=== PATIENT | female | born 1985 | race African-American/Black ===

== ENCOUNTER 2019-01-10 11:40 | Outpatient (CLI) | payer MEDICAID ==
[2019-01-10 13:11] LABS: ADD UMIC YES; UR AMORPHOUS CRYSTAL FEW /HPF (NONE SEEN); UR ASCORBIC ACID NEGATIVE (NEGATIVE); UR BACTERIA FEW /HPF (NONE SEEN); UR BILIRUBIN (Dip) NEGATIVE (NEGATIVE); UR BLOOD (Dip) NEGATIVE (NEGATIVE); UR CLARITY CLOUDY (CLEAR); UR COLOR RED (YELLOW); UR GLUCOSE (Dip) NEGATIVE (NEGATIVE); UR KETONES (Dip) NEGATIVE (NEGATIVE); UR LEUKOCYTE ESTERASE (Dip) NEGATIVE Leu/ul (NEGATIVE); UR NITRITE (Dip) NEGATIVE (NEGATIVE); UR RBC 0 /HPF (0-5); UR SPECIFIC GRAVITY (Dip) 1.013 (1.003-1.030); UR SQUAMOUS EPITHELIAL CELL FEW /HPF (FEW); UR TOTAL PROTEIN (Dip) NEGATIVE (NEGATIVE); UR UROBILINOGEN (Dip) NEGATIVE (NEGATIVE); UR WBC 2 /HPF (0-5)
== END 2019-01-10 14:20 | disposition home or self-care (01) ==
LOC: OBT 11:40 → L-D 11:42 → OBT 14:20
DX: O26.892 Other specified pregnancy related conditions, second trimester (principal); R10.2 Pelvic and perineal pain; M54.9 Dorsalgia, unspecified; Z3A.27 27 weeks gestation of pregnancy
CPT/HCPCS: 76818; 81001; 87086

== ENCOUNTER 2019-02-24 11:42 | Inpatient (IN) | payer MEDICAID ==
[2019-02-24 15:22] LABS: ADD MAN DIFF? NO
[2019-02-24 15:34] LABS: BASOPHILS % 0.2 % (0.0-2.0); EOSINOPHILS # 0.1 10^3/ul (0.0-0.5); EOSINOPHILS % 2.2 % (0.0-7.0); HEMATOCRIT 31.3 % (37.0-47.0); HEMOGLOBIN 10.9 g/dl (12.0-16.0); LYMPHOCYTES # 1.5 10^3/ul (0.8-2.9); LYMPHOCYTES % 24.7 % (15.0-51.0); MEAN CORPUSCULAR HEMOGLOBIN 30.8 pg (29.0-33.0); MEAN CORPUSCULAR HGB CONC 34.8 g/dl (32.0-37.0); MEAN CORPUSCULAR VOLUME 88.4 fl (82.0-101.0); MEAN PLATELET VOLUME 11.6 fl (7.4-10.4); MONOCYTE # 0.4 10^3/ul (0.3-0.9); MONOCYTES % 7.5 % (0.0-11.0); NEUTROPHIL # 3.8 10^3/ul (1.6-7.5); NEUTROPHILS % 64.9 % (39.0-77.0); PLATELET COUNT 159 10^3/UL (140-415); RED BLOOD COUNT 3.54 10^6/ul (4.20-5.40); RED CELL DISTRIBUTION WIDTH 14.1 % (11.5-14.5)
[2019-02-24 15:34] LABS: WHITE BLOOD COUNT 5.9 10^3/ul (4.8-10.8)
[2019-02-24] MEDS: ACETAMINOPHEN 325 MG TAB PO (16:32)
[2019-02-24] MEDS: LACTATED RINGER'S 1,000 ML IV ×2 (18:06→23:07)
[2019-02-25] MEDS: LACTATED RINGER'S 1,000 ML IV ×2 (06:30→16:39)
[2019-02-25] MEDS: PRENATAL VITAMIN PO (09:50)
[2019-02-25] MEDS: FERROUS SULFATE (EC) 325 MG TAB PO (09:50)
== END 2019-02-25 19:00 | disposition home or self-care (01) | DRG 833 ==
LOC: OBT 11:42 → PP1 02-25 07:00 → L-D 11:42 → OBT 17:15 → L-D 17:15
PROVIDERS: Obstetrics & Gynecology
PROC: 4A1HXCZ Monitoring of Products of Conception, Cardiac Rate, External Approach (ICD-10-PCS; principal; 2019-02-24)
DX: O26.893 Other specified pregnancy related conditions, third trimester (principal); Z3A.34 34 weeks gestation of pregnancy; S39.91XA Unspecified injury of abdomen, initial encounter; W19.XXXA Unspecified fall, initial encounter
CPT/HCPCS: 76815; 76816; 76818; 85025; 85460; 86850; 86900; 86901

== ENCOUNTER 2019-03-16 16:11 | Outpatient (CLI) | payer MEDICAID ==
[2019-03-16] MEDS ORDERED: CARBOPROST 250 MCG INJ IM (18:30)
[2019-03-16] MEDS ORDERED: BUTORPHANOL 2 MG INJ IV (18:30)
[2019-03-16] MEDS ORDERED: METHYLERGONOVINE 0.2 MG INJ IM (18:30)
[2019-03-16] MEDS ORDERED: LIDOCAINE 1% (MPF) 30 ML INJ INJ (18:30)
[2019-03-16] MEDS ORDERED: OXYTOCIN 30 UNITS/LR 500 ML IV ×3 (18:30)
[2019-03-16] MEDS ORDERED: MISOPROSTOL 200 MCG TAB PR (18:30)
[2019-03-16] MEDS: AMPICILLIN 2 GM/NS (PMX) 100 ML IV (18:45)
[2019-03-16 18:46] LABS: ADD MAN DIFF? NO
[2019-03-16 18:48] LABS: WHITE BLOOD COUNT 7.3 10^3/ul (4.8-10.8)
[2019-03-16 18:48] LABS: BASOPHILS % 0.3 % (0.0-2.0); EOSINOPHILS # 0.2 10^3/ul (0.0-0.5); EOSINOPHILS % 2.5 % (0.0-7.0); HEMATOCRIT 36.8 % (37.0-47.0); HEMOGLOBIN 12.6 g/dl (12.0-16.0); LYMPHOCYTES # 1.9 10^3/ul (0.8-2.9); LYMPHOCYTES % 25.9 % (15.0-51.0); MEAN CORPUSCULAR HEMOGLOBIN 30.1 pg (29.0-33.0); MEAN CORPUSCULAR HGB CONC 34.2 g/dl (32.0-37.0); MEAN PLATELET VOLUME 11.3 fl (7.4-10.4); MONOCYTE # 0.7 10^3/ul (0.3-0.9); MONOCYTES % 10.1 % (0.0-11.0); NEUTROPHIL # 4.4 10^3/ul (1.6-7.5); NEUTROPHILS % 60.7 % (39.0-77.0); PLATELET COUNT 198 10^3/UL (140-415); RED BLOOD COUNT 4.18 10^6/ul (4.20-5.40); RED CELL DISTRIBUTION WIDTH 14.5 % (11.5-14.5)
[2019-03-16] MEDS: LACTATED RINGER'S 1,000 ML IV (18:54)
[2019-03-16 19:07] LABS: INR 0.89; PROTIME 12.2 Sec (11.9-14.9)
[2019-03-16 19:08] LABS: PARTIAL THROMBOPLASTIN TIME 28.1 Sec (23.0-35.0)
[2019-03-16 19:09] LABS: ALANINE AMINOTRANSFERASE 27 IU/L (13-69); ALBUMIN 3.8 g/dl (3.3-4.9); ALBUMIN/GLOBULIN RATIO 1.02; ALKALINE PHOSPHATASE 185 IU/L (42-121); ANION GAP 8 (5-13); ASPARTATE AMINO TRANSFERASE 27 IU/L (15-46); BILIRUBIN,INDIRECT 0.6 mg/dl (0-1.1); BILIRUBIN,TOTAL 0.6 mg/dl (0.2-1.3); BLOOD UREA NITROGEN 9 mg/dl (7-20); CALCIUM 9.9 mg/dl (8.4-10.2); CARBON DIOXIDE 22 mmol/L (21-31); CHLORIDE 106 mmol/L (97-110); Estimated GFR > 60 mL/min (>60); GLUCOSE 100 mg/dl (70-220); POTASSIUM 3.9 mmol/L (3.5-5.1); SODIUM 136 mmol/L (135-144); TOTAL PROTEIN 7.5 g/dl (6.1-8.1)
[2019-03-16 19:12] LABS: ADD UMIC NO; UR ASCORBIC ACID NEGATIVE (NEGATIVE); UR BILIRUBIN (Dip) NEGATIVE (NEGATIVE); UR BLOOD (Dip) NEGATIVE (NEGATIVE); UR CLARITY CLEAR (CLEAR); UR COLOR STRAW (YELLOW); UR GLUCOSE (Dip) NEGATIVE (NEGATIVE); UR KETONES (Dip) NEGATIVE (NEGATIVE); UR LEUKOCYTE ESTERASE (Dip) NEGATIVE Leu/ul (NEGATIVE); UR NITRITE (Dip) NEGATIVE (NEGATIVE); UR SPECIFIC GRAVITY (Dip) 1.005 (1.003-1.030); UR TOTAL PROTEIN (Dip) NEGATIVE (NEGATIVE); UR UROBILINOGEN (Dip) NEGATIVE (NEGATIVE)
[2019-03-16] MEDS ORDERED: AMPICILLIN 1 GM/NS (PMX) 50 ML IV (21:00)
[2019-03-17] MEDS: LACTATED RINGER'S 1,000 ML IV (01:09)
[2019-03-17 20:39] LABS: RAPID PLASMA REAGIN NONREACTIVE (NR)
== END 2019-03-17 06:30 | disposition home or self-care (01) ==
LOC: OBT 16:11 → L-D 16:12 → OBT 16:28 → L-D 16:36
DX: O62.9 Abnormality of forces of labor, unspecified (principal); Z3A.37 37 weeks gestation of pregnancy
CPT/HCPCS: 76815; 76818; 80053; 81003; 85025; 85610; 85730; 86592; 86850; 86900; 86901

== ENCOUNTER 2019-03-28 19:12 | Inpatient (IN) | payer MEDICAID ==
[2019-03-28] MEDS ORDERED: LACTATED RINGER'S 1,000 ML IV (20:31)
[2019-03-28] MEDS ORDERED: AMPICILLIN 2 GM/NS (PMX) 100 ML (20:39)
[2019-03-28 20:40] LABS: ADD MAN DIFF? NO
[2019-03-28 20:42] LABS: BASOPHILS % 0.1 % (0.0-2.0); EOSINOPHILS # 0.1 10^3/ul (0.0-0.5); EOSINOPHILS % 1.7 % (0.0-7.0); HEMOGLOBIN 12.7 g/dl (12.0-16.0); LYMPHOCYTES # 2.1 10^3/ul (0.8-2.9); LYMPHOCYTES % 30.1 % (15.0-51.0); MEAN CORPUSCULAR HEMOGLOBIN 30.2 pg (29.0-33.0); MEAN CORPUSCULAR HGB CONC 34.3 g/dl (32.0-37.0); MEAN CORPUSCULAR VOLUME 87.9 fl (82.0-101.0); MEAN PLATELET VOLUME 12.2 fl (7.4-10.4); MONOCYTE # 0.4 10^3/ul (0.3-0.9); MONOCYTES % 5.8 % (0.0-11.0); NEUTROPHIL # 4.3 10^3/ul (1.6-7.5); NEUTROPHILS % 61.7 % (39.0-77.0); PLATELET COUNT 171 10^3/UL (140-415); RED BLOOD COUNT 4.21 10^6/ul (4.20-5.40); RED CELL DISTRIBUTION WIDTH 14.5 % (11.5-14.5)
[2019-03-28 20:42] LABS: WHITE BLOOD COUNT 6.9 10^3/ul (4.8-10.8)
[2019-03-28 20:46] LABS: INR 0.85; PROTIME 11.7 Sec (11.9-14.9); PT RATIO 0.9
[2019-03-28] MEDS: LACTATED RINGER'S 1,000 ML IV (20:46)
[2019-03-28] MEDS: AMPICILLIN 2 GM/NS (PMX) 100 ML IV (20:46)
[2019-03-28 20:47] LABS: PARTIAL THROMBOPLASTIN TIME 28.9 Sec (23.0-35.0)
[2019-03-28] MEDS ORDERED: MISOPROSTOL 200 MCG TAB PR (21:00)
[2019-03-28] MEDS ORDERED: BUTORPHANOL 2 MG INJ IV ×2 (21:00)
[2019-03-28] MEDS ORDERED: LIDOCAINE 1% (MPF) 30 ML INJ INJ (21:00)
[2019-03-28] MEDS ORDERED: OXYTOCIN 30 UNITS/LR 500 ML IV (21:00)
[2019-03-28] MEDS ORDERED: CARBOPROST 250 MCG INJ IM (21:00)
[2019-03-28] MEDS ORDERED: METHYLERGONOVINE 0.2 MG INJ IM (21:00)
[2019-03-28 21:20] LABS: HEPATITIS B SURFACE ANTIGEN NEGATIVE (NEGATIVE)
[2019-03-29] MEDS: AMPICILLIN 1 GM/NS (PMX) 50 ML IV ×6 (01:38→22:00)
[2019-03-29] MEDS: LACTATED RINGER'S 1,000 ML IV ×3 (03:13→13:13)
[2019-03-29] MEDS ORDERED: FENTAnyl 2MCG/ML-ROPIV 0.2% 100 ML (07:54)
[2019-03-29] MEDS ORDERED: EPHEDrine 25 MG/5 ML SYG IV (08:30)
[2019-03-29] MEDS ORDERED: FENTAnyl 2MCG/ML-ROPIV 0.2% 100 ML BAG EPI (08:30)
[2019-03-29] MEDS ORDERED: DIPHENHYDRAMINE 50 MG INJ IV (08:30)
[2019-03-29] MEDS ORDERED: ONDANSETRON 4 MG INJ IV ×2 (08:30→16:30)
[2019-03-29] MEDS ORDERED: NALOXONE (0.4 MG/ML) INJ IV (08:30)
[2019-03-29 15:23] LABS: RAPID PLASMA REAGIN NONREACTIVE (NR)
[2019-03-29] MEDS: OXYTOCIN 30 UNITS/LR 500 ML IV ×3 (16:04→21:31)
[2019-03-29] MEDS ORDERED: METHYLERGONOVINE 0.2 MG INJ IM (16:30)
[2019-03-29] MEDS ORDERED: DIBUCAINE 1% 30 GM OINT TOP (16:30)
[2019-03-29] MEDS ORDERED: ACETAMINOPHEN 325 MG TAB PO ×2 (16:30)
[2019-03-29] MEDS ORDERED: OXYTOCIN 30 UNITS/LR 500 ML IV (16:30)
[2019-03-29] MEDS ORDERED: MAGNESIUM HYDROXIDE 30ML CUP PO (16:30)
[2019-03-29] MEDS ORDERED: MISOPROSTOL 200 MCG TAB PR (16:30)
[2019-03-29] MEDS ORDERED: CARBOPROST 250 MCG INJ IM (16:30)
[2019-03-29] MEDS: WITCH HAZEL/GLYCERIN PAD PR (18:49)
[2019-03-29] MEDS: BENZOCAINE 20% 56 ML SPRAY TOP (18:50)
[2019-03-29] MEDS: IBUPROFEN 600 MG TAB PO (18:55)
[2019-03-29] MEDS: LACTATED RINGER'S 1,000 ML IV* (19:00)
[2019-03-29] MEDS: LANOLIN HPA 1 PKT TOP (21:28)
[2019-03-30] MEDS: LACTATED RINGER'S 1,000 ML IV* ×3 (00:27→16:27)
[2019-03-30] MEDS: AMPICILLIN 1 GM/NS (PMX) 50 ML IV ×3 (01:00→09:00)
[2019-03-30] MEDS: IBUPROFEN 600 MG TAB PO ×3 (05:39→19:09)
[2019-03-30 07:56] LABS: ADD MAN DIFF? NO
[2019-03-30 08:00] LABS: WHITE BLOOD COUNT 9.5 10^3/ul (4.8-10.8)
[2019-03-30 08:00] LABS: BASOPHILS % 0.2 % (0.0-2.0); EOSINOPHILS # 0.2 10^3/ul (0.0-0.5); EOSINOPHILS % 1.6 % (0.0-7.0); HEMATOCRIT 32.3 % (37.0-47.0); HEMOGLOBIN 10.9 g/dl (12.0-16.0); LYMPHOCYTES % 20.5 % (15.0-51.0); MEAN CORPUSCULAR HEMOGLOBIN 29.9 pg (29.0-33.0); MEAN CORPUSCULAR HGB CONC 33.7 g/dl (32.0-37.0); MEAN CORPUSCULAR VOLUME 88.5 fl (82.0-101.0); MEAN PLATELET VOLUME 12.7 fl (7.4-10.4); MONOCYTE # 0.9 10^3/ul (0.3-0.9); MONOCYTES % 8.9 % (0.0-11.0); NEUTROPHIL # 6.5 10^3/ul (1.6-7.5); NEUTROPHILS % 68.2 % (39.0-77.0); PLATELET COUNT 140 10^3/UL (140-415); RED BLOOD COUNT 3.65 10^6/ul (4.20-5.40); RED CELL DISTRIBUTION WIDTH 14.5 % (11.5-14.5)
[2019-03-30] MEDS: SENNA/DOCUSATE NA (8.6MG/50MG) TAB PO (21:46)
[2019-03-31] MEDS: LACTATED RINGER'S 1,000 ML IV* (07:54)
[2019-03-31] MEDS: SENNA/DOCUSATE NA (8.6MG/50MG) TAB PO (08:59)
[2019-03-31] MEDS: IBUPROFEN 600 MG TAB PO (08:59)
[2019-04-01 14:11] LABS: RUBELLA ANTIBODY - IGM <20.00 AU/mL
[2019-04-01 21:22] LABS: RUBELLA ANTIBODY - IGG 5.85 index
== END 2019-03-31 16:00 | disposition home or self-care (01) | DRG 807 ==
LOC: OBT 19:12 → PP1 03-29 17:21 → L-D 19:13 → OBT 19:30 → L-D 19:30
PROVIDERS: Obstetrics & Gynecology
PROC: 10E0XZZ Delivery of Products of Conception, External Approach (ICD-10-PCS; principal; 2019-03-29)
PROC: 0W8NXZZ Division of Female Perineum, External Approach (ICD-10-PCS; 2019-03-29)
DX: O99.824 Streptococcus B carrier state complicating childbirth (principal); Z37.0 Single live birth; Z3A.38 38 weeks gestation of pregnancy
CPT/HCPCS: 62322; 85025; 85610; 85730; 86592; 86762; 86850; 86900; 86901; 87340; 99464